=== PATIENT | male | born 1975 | race Caucasian/White ===

== ENCOUNTER 2017-01-27 15:17 | Observation (INO) | payer OTHER ==
[~2017-01-27] VITALS: Ht 193 cm; Wt 122.3 kg
--- NOTE | ~2017-01-27 | ESTC ---
Cardiac Perfusion Imaging Demographics Patient Name JOVITA Pastor Gender Male Patient Number [id number] Race Visit Number [id number] Ethnicity Corporate ID Room Number G6303 Accession Number [id number] Height 74 inches Date of 1975 Weight 270 pounds Interpreting Kermitld Oneil Date of study 01/28/2017 Physician MD Supervising /MIRACLEP Dawood Navarro APRN NM Technologist Herrera Sandra Ordering Physician Stress light rail signal technician Stress ECG Reading Dawood Navarro APRN Nurse Johnson Cha Physician RN Medications Reviewed with Patient prior to Procedure. Procedure Procedure Type: Nuclear Stress Test:Pharmacological, Lexiscan, Cardiolite Stress Test Procedure Start time: 01/28/2017 00:00 Indications: Abnormal rest ECG and Fatigue. Risk Factors The patient risk factors include:Current/Recent(w/in 1 year) tobacco use and family history of premature CAD appeared at age 47. Conclusions Summary Perfusion Images: The overall quality of the study is poor, due to gastrointestinal tracer uptake. Left ventricular cavity is noted to be enlarged on the stress and enlarged on the rest images. There is no evidence of abnormal lung activity. The right ventricle is not visualized an cannot be assessed. Impression ECG portion of lexiscan stress test is clinically negative for ischemia by diagnostic criteria. Myocardial perfusion imaging reveals mild perfusion defect in the mid anterior wall suggestive of ischemia. The inferior wall matched defect is consistent with soft tissue attenuation. Apical thinning noted. Overall left ventricular systolic function was slightly reduced at 46% and TID ratio is 1.05. There are no previous studies for comparison . This is an abnormal lexiscan stress test. Stress Protocols Resting ECG Normal Sinus Rhythm Pre-stress physical exam: Patient assessed by Ilan WALLER prior to testing. Peak HR:95 bpm HR response: Appropriate Peak BP:139/72 mmHg BP response: Appropriate Predicted HR: 179 bpm HR/BP product:80142 % of predicted HR: 53 Reason for termination:Infusion complete ECG Findings No ECG changes suggestive of ischemia. Arrhythmias No rhythm abnormality. Symptoms Shortness of breath. Nausea. Headache. Complications Procedure complication: None. Stress Interpretation Appropriate hemodynamic response to Lexiscan. No significant ST-T wave changes with Lexiscan. ECG portion is negative for ischemia by diagnostic criteria. Will correlate with nuclear images. Imaging Results Summed scores - Summed stress score: 0 - Summed rest score: 4 - Summed difference score: -4 Stress ejection Ejection fraction:46 % EDV :204 ml ESV :110 ml Stroke volume :94 ml LV mass :204 gr Imaging Protocols Rest Stress Isotope:Tc99m Sestamibi IV Isotope: Tc99m Sestamibi IV Isotope dose:15.3 mCi Isotope dose:44.4 mCi Date:01/28/2017 07:30 Date:01/28/2017 09:27 Technique: SPECT Technique: Gated Supine SPECT Supine IV remains in place after procedure. Scan Time:45-60 minutes post Scan Time:45-60 minutes post injection injection Procedure Medications - Regadenoson (Lexiscan) 0.4 mg IV over 10-15 sec. I.V. 0.4 . Medical History Admission Data Admission date: 01/27/2017 Admission Time: 17:25 Hospital Status: Inpatient. Signatures dtt: JOHN CORONEL dtd: 01/28/17 0000 Physician Self Edit
--- NOTE | ~2017-01-27 | PUL ---
PATIENT'S NAME: DERICK HUSSEIN [facility] AGE: 41 Y [address] ROOM: [address] [address] LOCATION: GPCU ADMIT DATE: 01/27/2017 Pulmonary DISCHARGE DATE: 01/29/2017 FAMILY PHYSICIAN: John Kinney PA-C ATTENDING PHYSICIAN: Houston Poon NAME OF PROCEDURE: Overnight Pulse Oximetry DATE OF PROCEDURE: January 28 to January 29, 2017 REASON FOR EXAM: Nocturnal hypoxemia RESULTS: The test was performed on room air. The recording time was 8 hours, 57 minutes, with a total valid sampling time of 8 hours, 56 minutes and 36 seconds. The highest pulse was 94, lowest pulse was 45, with a mean pulse of 56. The highest SpO2 was 100%, lowest SpO2 was 77%, with a mean SpO2 of 94.4%. The patient spent 44 seconds with SpO2 less than 89%, representing 0.1% of the total sleep time. The desaturation event index was normal at 1.5. PHYSICIAN INTERPRETATION: The patient does not have evidence of significant nocturnal hypoxia and would not qualify for supplemental oxygen as per Medicare criteria. MD MISTY DUFFY/chris /[id number] dtt: 02/02/17 1311 , STIVEN ALICIA dtd: 02/01/17 1358
--- NOTE | ~2017-01-27 | DS ---
PATIENT'S NAME: DERICK ARAUJO [facility] AGE: 41 Y [address] ROOM: [place] [address] LOCATION: GPCU ADMIT DATE: 01/27/2017 Discharge Summary DISCHARGE DATE: 01/29/2017 FAMILY PHYSICIAN: John Kinney PA-C ATTENDING PHYSICIAN: Houston Poon PRINCIPAL DISCHARGE DIAGNOSIS: Atypical chest pain. SECONDARY DIAGNOSES: 1. Severe periodontal disease. 2. Dental caries. 3. Hypertension. 4. Tobaccoism. 5. Headache and multiple constitutional symptoms of unclear etiology. CONSULTATIONS: Dr. Clarice Aleman on 01/27/2017. PROCEDURES: 1. Lexiscan on 01/28. 2. Echocardiogram on 01/28. BRIEF SUMMARY OF FINDINGS: On the echocardiogram, there was normal left ventricular size and systolic function with an estimated EF of 60% to 65%, mild concentric left ventricular hypertrophy, and mild biatrial enlargement. The Lexiscan was thought to be of poor quality related to GI tracer uptake, and the EKG portion was negative for ischemia by diagnostic criteria. Overall, Dr. Aleman felt this was an inconclusive test. BRIEF SUMMARY: Mr. Araujo is a 41-year-old male with known history of hypertension and tobacco use who was sent from [place] because of generally feeling unwell with left-sided chest pain and report of abnormal EKG. EKG obtained here showed sinus rhythm, PA interval of 160, rate of 65, without significant abnormality. He had been feeling unwell for about 3 weeks with malaise, fatigue, and some shortness of breath. Initially, he denied headache, but today he has had left- sided frontal headache which he thinks is related to his dental pain. He says he has been having intermittent chest pain sometimes related with numbness in his hand. Intermittent abdominal pain. When I interviewed him yesterday, he and his agree he does have some difficulty with sleep, possible snoring, may be some problems indicative of sleep apnea. Plan for today was to have a CT angiogram given the inconclusive Lexiscan; however, that was not able to be accomplished. PATIENT'S NAME: LINCOLN ARAUJOIS Darby [facility] AGE: 41 Y [address] ROOM: [place] [address] [facility] ADMIT DATE: 01/27/2017 Discharge Summary DISCHARGE DATE: 01/29/2017 FAMILY PHYSICIAN: John Kinney PA-C ATTENDING PHYSICIAN: Houston Poon I recommended a Panorex of his mouth to look at his dental disease; however, he was not sure of insurance coverage for this, and he declines this test at this time. The patient has set up dental followup for February 02 and is requesting discharge at this time. On admission, he also complained of some urinary hesitancy, and I suggested that he see a urologist as an outpatient. He does smoke and was counseled on admission regarding smoking cessation. I will give him a script for one week of a NicoDerm patch 21 mg, and this can be downgraded to 14 mg after that. It should be available over the counter for the patient. INSTRUCTIONS AT DISCHARGE: Diet: Low fat, with increase to more veggies and fruits. Activity: Walk 30 minutes a day. Followup appointment with Dr. Aleman in one month. His dental appointment is for February 02, and he should establish care with a primary care physician. MEDICATIONS AT THE TIME OF DISCHARGE: 1. Peridex mouthwash 30 mL swish and spit twice a day. 2. Nicotine patch 21 mg transdermal, change daily. 3. Tylenol p.r.n. CONDITION AT DISCHARGE: Good. Greater than 30 minutes were spent in the care of the patient regarding the discharge planning, etc. SANTO DARLING MD LM/mikhail /[id number] d: 01/30/17 1633 t: 02/05/17 1820, DISCHARGE SUMMARY
--- NOTE | ~2017-01-27 | CON ---
PATIENT'S NAME: DERICK ARAUJO [facility] AGE: 41 Y [address] ROOM: [place] [address] LOCATION: GPCU ADMIT DATE: 01/27/2017 Consultation DISCHARGE DATE: FAMILY PHYSICIAN: PHYSICIAN, UNKNOWN ATTENDING PHYSICIAN: Houston Poon DATE OF CONSULTATION: 01/27/2017 REFERRING PHYSICIAN: JOHN CORONEL MD REQUESTING PROVIDER: Houston Poon M.D. REASON FOR CONSULTATION: Chest pain. HISTORY OF PRESENT ILLNESS: Mr. Araujo is a very pleasant 41-year-old male without any previous cardiac history. He has complaints of feeling weak and dizzy for the past 3 weeks. He also reports a lot of fatigue and drenching sweats for the past 3 weeks as well. Also complains of headache on the left side of his forehead. He does report that he has chills and fevers both going on. He just has not been feeling very well for the past 3 weeks. Upon further questioning, he does report that he has chest pain off and on, mild, it radiates to the left arm, and once he starts pumping his fist, the chest pain decreases. He reports that lasts a few minutes and resolves on its own. During interview, the patient does not have any chest pain. He says that he has occasional shortness of breath, but no PND or orthopnea. Occasional lower extremity edema. No palpitations, lightheadedness, or loss of consciousness. No falls. No changes in his speech, appetite, or vision. No skin rashes. REVIEW OF SYSTEMS: A 10-point review of systems discussed with the patient. Pertinent positives and negatives mentioned in the history of presenting illness. PAST MEDICAL HISTORY: No active problems. PAST SURGICAL HISTORY: Appendectomy in 2011 and bilateral knee surgeries. SOCIAL HISTORY: Current smoker, 1 pack per day. Social drinker. He lives in [place] with his family. FAMILY HISTORY: PATIENT'S NAME: DERICK ARAUJO [facility] AGE: 41 Y [address] ROOM: [place] [address] LOCATION: GPCU ADMIT DATE: 01/27/2017 Consultation DISCHARGE DATE: FAMILY PHYSICIAN: PHYSICIAN, UNKNOWN ATTENDING PHYSICIAN: Houston Poon Positive for premature coronary artery disease. His father had a triple bypass surgery when he was 48 years old. MEDICATIONS: Excedrin p.r.n. ALLERGIES: NO KNOWN DRUG ALLERGIES. PHYSICAL EXAMINATION: GENERAL: The patient is awake, alert, cooperative, in no apparent distress. SKIN: Rash. HEAD: Normocephalic and atraumatic. EYES: Conjunctivae white. Extraocular movements are intact. Mucous membranes moist. NECK: No JVD. HEART: S1 and S2. Regular rate and rhythm. No murmurs, gallops, or rubs. LUNGS: Clear to auscultation bilaterally. ABDOMEN: Soft. Bowel sounds positive. NEUROLOGIC: Grossly intact. No significant lower extremity edema. IMAGING: EKG showed normal sinus rhythm with some early repolarization changes, no evidence of any ST elevation or depression, suggestive of ischemia or injury pattern. LABORATORY DATA: WBC 10.9, H and H 15.8 and 47, and platelets are 300. IMPRESSION: 1. Atypical chest pain. 2. Shortness of breath. 3. Fatigue. 4. Nausea and vomiting. 5. Cold sweats and intermittent fevers. 6. Tobacco abuse. PLAN: At this time, the patient has numerous constitutional symptoms. I am not sure if he has some sort of an infection or inflammatory process going on. We will defer to the hospitalist for workup as far as that is concerned. As far as the chest pain, it is quite atypical and I am fairly uncertain this is not secondary to ACS, however, we will get serial isoenzymes. If he rules out [place], it is reasonable to risk stratify with a Lexiscan stress test since he is unable to walk up on an incline on the treadmill due to his bilateral knee PATIENT'S NAME: DERICK ARAUJO [facility] AGE: 41 Y [address] ROOM: [place] [address] [facility] ADMIT DATE: 01/27/2017 Consultation DISCHARGE DATE: FAMILY PHYSICIAN: PHYSICIAN, UNKNOWN ATTENDING PHYSICIAN: Houston Poon surgeries. Since he has risk factors of premature coronary artery disease, chest pain as well as tobacco use history, it is reasonable to evaluate if there is any evidence of ischemia. I will also get an echocardiogram for evaluating his heart function as well as valve and presence of diastolic dysfunction. The patient was counseled again the importance of cessation of tobacco products. Thank you very much for allowing us to participate in the care of Mr. Araujo. JOHN CORONEL MD AT/annal /[id number] d: 01/28/17 0152 t: 01/28/17 1750, CONSULTATION REPORT
--- NOTE | ~2017-01-27 | ECHO ---
Transthoracic Echocardiography Report (TTE) Demographics Patient Name DERICK HUSSEIN Date of Study 01/28/2017 Patient Number [id number] Visit Number [id number] Date of 1975 Room Number G6303 Gender Male Number Age 41 year(s) Referring Nirmal LEONG Brush Clearing Laborer Natalia Paulino RDCS, Physician Ash Oneil RVT MD Physician Interpreting Ash Oneil Adjuster Piano Action Physician MD Supervising Ordering Ash Oneil MD/MLP Physician MD Nurse Stress Child Advocate Conclusions Contractility Score Summary Normal Left Ventricular contractility was noted. Summary Normal LV/RV size and systolic function. The estimated left ventricular ejection fraction is 60-65%. Mild concentric left ventricular hypertrophy. Mild biatrial enlargement. No significant valvular abnormalities. Procedure Type of Study TTE procedure:2D Echocardiogram. Procedure Date Date: 01/28/2017 Start: 03:05 PM Study Location: Inpatient Portable Technical Quality: Adequate visualization Indications:Chest pain and Shortness of breath. Appropriate Use Criteria: 9 Patient Status: Routine HR: 57 bpm BP: 114/62 mmHg M-Mode/2D Measurements LV Diastolic Dimension: 5.03 cm LV Systolic Dimension: 3.06 cm LV Septum Diastolic: 1.14 cm LV PW Diastolic: 1.09 cm Cardiac Output: 6.01 l/min LA Dimension: 3.5 cm LVOT: 2.5 cm LVOT VTI: 21.5 cm RV Base: 3.26 cm LV Stroke volume: 105.48 ml RV Length: 8.2 cm TAPSE: 2.72 cm TDI-S': 11.7 cm/s Doppler Measurements AV Peak Velocity: 1.25 m/s MV Peak E-Wave: 0.64 m/s AV Peak Gradient: 6.25 mmHg MV Peak A-Wave: 0.53 m/s AV Mean Gradient: 3 mmHg MV E/A Ratio: 1.21 LVOT Peak Velocity: 1.17 m/s MV Deceleration Time: 285 msec TR Velocity:2.02 m/s PV Peak Velocity: 1.18 m/s TR Gradient:16.32 mmHg PV Peak Gradient: 5.57 mmHg Estimated RAP:15 mmHg Estimated PASP: 31.32 mmHg Estimated RVSP: 31 mmHg A' Septal Velocity: 0.13 m/s E' Septal Velocity: 0.09 m/s A' Lateral Velocity: 0.08 m/s E' Lateral Velocity: 0.16 m/s Findings Left Ventricle Mild concentric left ventricular hypertrophy. Diastolic assessment reveals normal relaxation. Right Ventricle Normal right ventricle structure and function. Left Atrium The left atrium is mildly dilated by LA volume index measurement. Right Atrium The right atrium is mildly dilated. Mitral Valve Normal mitral valve structure and function. Aortic Valve Normal aortic valve structure and function. Tricuspid Valve Mild tricuspid regurgitation by color Doppler. Pulmonic Valve Normal pulmonic valve structure and function. Pericardial Effusion No evidence of pericardial effusion. Miscellaneous Visualized portions of the aortic root and ascending aorta appear normal in size. Pleural Effusion No evidence of pleural effusion. Contractility Score LV regional wall motion:(0-Non visualized 1-Normal 2-Hypokinesis 3-Akinesis 4-Dyskinesis 5-Aneurysm) Signature dtt: JOHN CORONEL dtd: 01/28/17 1505 Physician Self Edit
--- NOTE | ~2017-01-27 | HP ---
PATIENT'S NAME: DERICK HUSSEIN [facility] AGE: 41 Y [address] ROOM: [place] [address] LOCATION: GPCU ADMIT DATE: 01/27/2017 History & Physical DISCHARGE DATE: FAMILY PHYSICIAN: PHYSICIAN, UNKNOWN ATTENDING PHYSICIAN: Houston Poon DATE OF SERVICE: CHIEF COMPLAINT: Chest pain. HISTORY OF PRESENTING ILLNESS: This 41-year-old white male with a previous history of hypertension and tobacco use was sent to the emergency room today by his primary care provider in [place] with complaints of feeling unwell and left-sided chest pain. There was a report of abnormal EKG initially, but I do not have that for review. His EKG in the emergency room here was normal. He states he has not felt well for 3 weeks. He describes feelings of malaise and fatigue and some shortness of breath. He cannot really relate it to any specific incident, but indicates that his family members were sick with a viral illness around that time. He denies fevers, chills, or sweats. He denies headaches, but does feel a little dizzy, particularly when he is up. His chest pain is left-sided and sharp in nature. It comes and goes. He has also got some fullness in the left axilla, but he thinks that is resolving. He does have some intermittent abdominal pain and feels as though he cannot empty his bladder at times. Bowels have been regular. He stools normally, denies noticing any blood in his stools or black tarry stools, no other urinary complaints, and no numbness, tingling, or weakness in his extremities. ALLERGIES: BEE STINGS. ILLNESSES: 1. Hypertension. 2. Tobaccoism. CURRENT MEDICATIONS: Essential oils topically p.r.n. FAMILY HISTORY: Significant for heart disease in his father. He from lung cancer. Mother suffered from a brain tumor. There is also diabetes on his mother's side. PATIENT'S NAME: DERICK HUSSEIN [facility] AGE: 41 Y [address] ROOM: [place] [address] LOCATION: GPCU ADMIT DATE: 01/27/2017 History & Physical DISCHARGE DATE: FAMILY PHYSICIAN: PHYSICIAN, UNKNOWN ATTENDING PHYSICIAN: Houston Poon SOCIAL HISTORY: He is and lives in [place]. He works as a superintendent construction. He has got a [id number] history of smoking tobacco. He drinks alcohol occasionally. He denies any other illicit drug use. REVIEW OF SYSTEMS: As per HPI. All other organ systems reviewed and are negative. OBJECTIVE: VITAL SIGNS: Temperature 96.6, pulse 76, respirations 18, and blood pressure 126/79. GENERAL: He is anxious, but cooperative, lying in bed, in no acute distress. SKIN: Supple, pink, warm, and dry. No obvious rashes. HEENT: Otherwise, normocephalic. Sclerae nonicteric. Pupils equal, round, and reactive to light and accommodation. Extraocular movements appear intact. Nasal turbinates normal in appearance. Oropharynx clear. Mucous membranes pink and moist. NECK: Supple. No masses or adenopathy. No thyromegaly. No JVD. CHEST: Chest wall is symmetrical. HEART: Regular without murmurs. LUNGS: Clear bilaterally. No wheezes or crackles heard. ABDOMEN: Soft, nontender. Bowel sounds present. No masses. No hepatosplenomegaly. AND RECTAL: Not done. EXTREMITIES: Display no cyanosis or edema. NEUROLOGICAL: No focal deficits. LABORATORY AND X-RAY DATA: A 12-lead EKG shows normal sinus rhythm without any acute abnormalities. Chest x-ray is unremarkable. CBC showed a white blood cell count 10.6, hemoglobin is 15.6, hematocrit 47.0, and platelets 231. Chemistries reveal BUN and creatinine 11 and 0.8 respectively; sodium and potassium 138 and 4.3; chloride and CO2 are 104 and 29; calcium is 8.8; AST and ALT 13 and 27; magnesium was 2.3. Sed rate was normal at 5. PT and PTT 10.3 and 27 respectively. Cardiac enzymes were negative with CPK of 75. Troponin I less than 0.04. Pro-BNP was less than 30. C-reactive protein was 0.29. TSH was 2.97. Procal was less than 0.05. Amylase and lipase were normal at 45 and 101. Lactate was 1.4. ASSESSMENT AND PLAN: 1. Atypical chest pain. We will admit for observation. His initial set of cardiac enzymes and EKG is normal, but he did get some relief with intravenous nitroglycerin. I placed him on the acute coronary syndrome pathway. We will hold off on heparinization as his SUSAN score is low. We will follow serial enzymes and continue with supportive cares. Try to PATIENT'S NAME: DERICK HUSSEIN [facility] AGE: 41 Y [address] ROOM: [address] [address] LOCATION: [facility] ADMIT DATE: 01/27/2017 History & Physical DISCHARGE DATE: FAMILY PHYSICIAN: PHYSICIAN, UNKNOWN ATTENDING PHYSICIAN: Houston Poon wean the nitro as he is able. I did discuss the case with Dr. Muniz, [facility] Cardiology, who will also evaluate. If he rules out, we will plan for cardiac stress testing tomorrow. 2. Excessive fatigue. Differential diagnosis is relatively broad. His preliminary workup which is fairly extensive is benign. There is no evidence of infection or inflammatory disorder. We will follow his cardiac workup. Consider getting echocardiography and await cardiac stress testing. Encourage attention to healthy lifestyle habits including good sleep, hygiene, balanced diet, regular exercise etc. He might benefit from a sleep study at some point. 3. Essential hypertension. Currently, stable. We will follow the trend and make adjustments if necessary. We will go ahead and add beta-abelardo therapy and JAKE inhibitor therapy per the acute coronary syndrome pathway. 4. Urinary hesitancy, suspect this may be related to underlying benign prostatic hypertrophy. He is only minimally symptomatic. We will get a bladder scan and suggest outpatient Urology evaluation. 5. Tobaccoism, urged smoking cessation. Gave smoking cessation counseling. Spent approximately 10 minutes discussing this. He is in a contemplative phase. We will utilize nicotine transdermal patch while he is inpatient. Encourage continued abstinence at discharge. 6. Deep venous thrombosis prophylaxis. We will use low-dose Lovenox while he is inpatient. MD ESME MORA/mikhail /[id number] D: [id number] T: [id number] HISTORY & PHYSICAL
--- NOTE | ~2017-01-27 | ER ---
PATIENT'S NAME: LINCOLN HUSSEINIS Darby [facility] AGE: 41 Y [address] ROOM: [address] [address] LOCATION: [facility] ADMIT DATE: 01/27/2017 ER/Outpatient Report DISCHARGE DATE: FAMILY PHYSICIAN: PHYSICIAN, UNKNOWN ATTENDING PHYSICIAN: Houston Poon Admission date and time are documented on the medical record. I saw the patient at 1530 hours. CHIEF COMPLAINT: Left anterior chest pain, radiating to the left shoulder down the left arm with accompanied shortness of breath, diaphoresis, nausea, vomiting, lightheadedness, dizziness, fatigue, and weakness. HISTORY OF PRESENT ILLNESS: The patient is a 41-year-old male who has not been feeling well for about 3 weeks. He had an upper respiratory infection 3 to 4 weeks ago and he has not really recovered from that. He is fatigued easily with generalized weakness. 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 He developed some left anterior chest pain this morning radiating into the left shoulder down the left arm accompanied with shortness of breath, diaphoresis, nausea, vomiting x1, lightheadedness, dizziness, and a generalized weakness, fatigue. No known history of coronary artery disease, lung disease, diabetes, liver and kidney disease. He does smoke a pack of cigarettes per day. He does have a strong family history of heart disease. Does have occasional occipital left frontal headache behind his left eye. He has had it off and on over the past few days. No eyes, ears, nose, throat, neck, or spine pain. No fall or trauma. Over the past week or so, he has not had any colds, coughs, flus, fever, chills, or sweats. No syncope or near syncope. No abdominal pain. No diarrhea. No urinary symptoms. No joint or muscle swelling, redness, or pain. No skin eruptions or rash. No history of neuro changes, psych issues, or endocrine problems. HOME MEDICATIONS: None. ALLERGIES: NONE. SOCIAL HISTORY: The patient smokes a pack of cigarettes a day. Does smoke marijuana on occasion. Drinks alcohol 2 times a week. No other illnesses. OPERATIONS: [facility] 41 Y [address] ROOM: [id number] [place], [place] [address] LOCATION: [facility] ADMIT DATE: 01/27/2017 ER/Outpatient Report DISCHARGE DATE: FAMILY PHYSICIAN: PHYSICIAN, UNKNOWN ATTENDING PHYSICIAN: Houston Poon Appendectomy, neck surgery, and bilateral knee arthroscopy. REVIEW OF SYSTEMS: All systems reviewed by me are negative with the exception of those discussed in the history of present illness. PHYSICAL EXAMINATION: VITAL SIGNS: Pulse 70, respirations 18, blood pressure 150/82, and O2 sat on room air is 97%. Newton Coma Scale was 15. HEAD: Normocephalic. No abrasion, contusion, laceration, or swelling of scalp or face. EYES: Extraocular muscles intact. PERRL. Sclerae and conjunctivae clear, nonicteric. EARS, NOSE, THROAT: Clear. Mucous membranes moist. Teeth, jaw intact. NECK: Full range of motion. No thyromegaly or cervical adenopathy. No tenderness. SPINE: Nontender. No deformity. LUNGS: Clear. Good airflow. No rales, rhonchi, or wheezes. HEART: Regular. Pulses are palpable. No chest wall or ribcage pain to palpation. ABDOMEN: Soft, nondistended, nontender. Good bowel tones. No organomegaly or abnormal mass palpable. EXTREMITIES: No peripheral edema, cyanosis, or deformity. NEUROVASCULAR: Intact. SKIN: Clear. No skin eruptions or rash. LABORATORY DATA: EKG showed sinus rhythm. No acute ST-elevation, ischemic change, or arrhythmia. Chest x-ray showed no acute infiltrate or changes. We will review x-ray with the radiologist. Laboratory: Procalcitonin was normal at less than 0.05. Lactate was normal at 1.4. CBC showed a white count of 10,600, 60 segs, 27 lymphs, 8 monos, 3 eos, 1 baso, hemoglobin is 15.6, hematocrit 45.0, and platelet count was 231,000. PTT was 27, pro-time is 10.3 with an INR 0.98. CMS was normal except for a low anion gap of 9.3, magnesium was normal at 2.3, amylase and lipase were normal. CPK was normal at 75. [id number] cardiac enzymes were normal. CRP was less than 0.29. Thyroid tests were normal. Pro-BNP was less than 30, D-dimer was normal at less than 0.19. EMERGENCY DEPARTMENT COURSE: We did give the patient 4 baby aspirin orally. Did start him on a nitro drip and got it up to 10 mcg with resolution of his chest pain. IMPRESSION: 1. Left anterior chest pain, radiating into the left shoulder, down the left PATIENT'S NAME: DERICK HUSSEIN [facility] AGE: 41 Y [address] ROOM: [address] [address] LOCATION: [facility] ADMIT DATE: 01/27/2017 ER/Outpatient Report DISCHARGE DATE: FAMILY PHYSICIAN: PHYSICIAN, UNKNOWN ATTENDING PHYSICIAN: Houston Poon arm with accompanied shortness of breath, nausea, vomiting, lightheadedness, dizziness, diaphoresis, and generalized weakness and fatigue, suspect unstable angina, with resolution of his pain, using nitro. The patient has risk factors that he is a heavy smoker, slightly obese, with a strong family history of heart disease. 2. Tobacco abuse. PLAN: Discussed the patient with Dr. Poon, hospitalist, who will admit the patient to the hospital. Observation, PCU telemetry for further cardiac evaluation, stress test, possible echo, possible cardiac catheterization. Discussion ensued with the patient concerning my findings and recommendations, he understands. Accumulated critical care time was 30 minutes. MD JENNIFER VEGA/modl /[id number] d: 01/28/17 0005 t: 01/28/17 0617, OUTPATIENT REPORT
[2017-01-27 15:55] LABS: BASOPHIL # 0.1 K/uL (0.0-0.2); BASOPHIL % 0.7 %; EOSINOPHIL # 0.3 K/uL (0.0-0.5); EOSINOPHIL % 3.1 %; HEMOGLOBIN 15.6 g/dL (12.0-17.0); IMMATURE GRANULOCYTE % 0.4 %; LYMPHOCYTE # 2.9 K/uL (0.8-4.0); LYMPHOCYTE % 27.4 %; MCH 29.9 pg (27.0-34.0); MCHC 33.2 gm/dL (32.0-36.5); MCV 90.2 fl (83.0-98.0); MONOCYTE # 0.9 K/uL (0.0-1.0); MONOCYTE % 8.1 %; NEUTROPHIL # (ANC) 6.4 K/uL (1.4-9.0); NEUTROPHIL % 60.3 %; NRBC % 0 /100WBC (0-0.00); PLATELET COUNT 231 K/uL (150-450); RBC 5.21 M/uL (4.00-6.00); RDW-CV 14.5 % (11.9-14.6); WBC 10.6 K/uL (4.0-11.0)
[2017-01-27 16:03] LABS: INR - (THERAPEUTIC) 0.98 (0.92-1.07); PROTIME 10.3 SECONDS (9.8-11.4); PTT 27 SECONDS (25-32)
[2017-01-27 16:16] LABS: ALBUMIN 3.9 gm/dL (3.5-5.0); ALK PHOS 67 IU/L (33-138); ALT 27 IU/L (12-78); ANION GAP 9.3 (10.0-19.0); AST 13 IU/L (10-40); BLOOD UREA NITROGEN 11 mg/dL (6-24); CALCIUM 8.8 mg/dL (8.5-10.5); CHLORIDE 104 mMol/L (96-110); CO2 29 mMol/L (22-32); CPK 75 IU/L (35-332); CREATININE 0.8 mg/dL (0.6-1.3); ESTIMATED GFR (MDRD EQUATION) > 60; MAGNESIUM 2.3 mg/dL (1.8-2.6); POTASSIUM 4.3 mMol/L (3.7-5.1); SODIUM 138 mMol/L (135-145); TOTAL BILIRUBIN 0.2 mg/dL (0.0-1.5); TOTAL PROTEIN 7.5 g/dL (6.0-8.4)
--- NOTE | 2017-01-27 17:46 | NUR ---
Admission Note: Patient reports the last 3 weeks he has felt excessively tired and has broken out in cold sweats every night. He has also had an intermittent shart left-sided chest pain radiating down left arm for 3 weeks. Went to the clinic today to be checked out, and it was noted he had ST elevation on EKG. Patient refused ambulance ride and drove by private car to [facility] ED. Cardiac enzymes negative on arrival and EKG showed sinus rhythm. Started on Nitroglycerin gtt at 5 mcg/min and patient still reported chest pain. Chest pain free with 10 mcg/min. Patient admitted to PCU at 1720. Vital signs: HR 64, RR 16, BP 114/81, O2 saturation 95% on RA, temperature 98.0F, and denies chest pain at this time. States that he is just tired, but otherwise assessment negative. Denies shortness of breath. Continued on Nitroglycerin at 10 mcg/min. Notified Dr. Poon of patient's arrival. Will continue as per plan of care. Aditya RIVERA 01/27/17
[2017-01-27 18:21] LABS: BILIRUBIN URINE NEGATIVE (NEGATIVE); BLOOD URINE 10 /UL (NEGATIVE); COLOR URINE YELLOW (YELLOW); GLUCOSE URINE NEGATIVE (NEGATIVE); KETONE URINE NEGATIVE (NEGATIVE); LEUKOCYTES URINE 25 /UL (NEGATIVE); NITRITE URINE NEGATIVE (NEGATIVE); PROTEIN URINE NEGATIVE (NEGATIVE); TURBIDITY URINE CLEAR (CLEAR); UROBILINOGEN URINE NORMAL (NORMAL)
[2017-01-27 18:50] LABS: BACTERIA URINE NEGATIVE (NEGATIVE); RBC URINE 0-2 #/HPF (NEGATIVE); WBC URINE RARE #/HPF (NEGATIVE)
[2017-01-27 18:52] LABS: CPK 74 IU/L (35-332)
[2017-01-27 23:37] LABS: CPK 62 IU/L (35-332)
--- NOTE | 2017-01-28 05:01 | NUR ---
Significant Event: Patient is alert/oriented x3. Vital signs are stable. On room air. Nitroglycerin drip turned off around midnight. Patient has denied chest pain throughout the night. Cardiac enzymes have been negative. NPO since midnight. Follow up: Lexiscan stress test this AM and echo.
[2017-01-28 05:56] LABS: CPK 65 IU/L (35-332)
--- NOTE | 2017-01-28 11:29 | NUR ---
Introduced self and role of care management to patient and . They live in [place]. He states that he is able to do all his own ADL's. His states that she will be available to assist as needed. They plan on him returning home on discharge. He denies any needs at this time. Will continue to follow.
[2017-01-28 11:35] LABS: CPK 68 IU/L (35-332)
--- NOTE | 2017-01-28 19:14 | NUR ---
Significant Event: VSS ON RA. STRESS TEST ABNORMAL BEING NON-DIAGNOSTIC. CTA OF CORONARIES ORDERED FOR TOMORROW IN AM WELL PANOREX XRAY IN THE MORNING. PATIENT REQUESTING BOTH SCANS TO BE ON H OLD UNTIL FURTHER KNOWLEDGE OF INSURANCE COVERING BOTH SCANS. NO C/O CHEST DISCOMFORT. AMBULATE IN HALLS WITH CARDIAC REHAB SBA WITH ONLY C/O WEAKNESS. TYLENOL GIVEN AT 0725 FOR HEADACHE WITH RELIEF NOTED. PIV SL'D TO R) WRIST/FA. BM TODAY AND VOIDS PER URINAL. FISH OIL INITIATED AND LIPITOR DC'D. Follow up: CTA OF CORONARIES AND PANOREX XRAY TOMORROW. MONITOR PER PLAN OF CARE.
[2017-01-29 04:30] LABS: BASOPHIL # 0.1 K/uL (0.0-0.2); BASOPHIL % 0.6 %; EOSINOPHIL # 0.4 K/uL (0.0-0.5); EOSINOPHIL % 3.8 %; HEMATOCRIT 47.6 % (37.0-53.0); HEMOGLOBIN 16.1 g/dL (12.0-17.0); IMMATURE GRANULOCYTE % 0.4 %; LYMPHOCYTE # 3.1 K/uL (0.8-4.0); LYMPHOCYTE % 30.6 %; MCH 30.7 pg (27.0-34.0); MCHC 33.8 gm/dL (32.0-36.5); MCV 90.7 fl (83.0-98.0); MONOCYTE # 0.8 K/uL (0.0-1.0); MONOCYTE % 8.2 %; MPV 10.1 fl (9.4-12.4); NEUTROPHIL # (ANC) 5.8 K/uL (1.4-9.0); NEUTROPHIL % 56.4 %; NRBC % 0 /100WBC (0-0.00); PLATELET COUNT 212 K/uL (150-450); RBC 5.25 M/uL (4.00-6.00); RDW-CV 14.1 % (11.9-14.6); WBC 10.3 K/uL (4.0-11.0)
[2017-01-29 04:47] LABS: ALBUMIN 3.7 gm/dL (3.5-5.0); ANION GAP 11.5 (10.0-19.0); BLOOD UREA NITROGEN 14 mg/dL (6-24); CALCIUM 8.6 mg/dL (8.5-10.5); CHLORIDE 105 mMol/L (96-110); CO2 27 mMol/L (22-32); CREATININE 0.9 mg/dL (0.6-1.3); ESTIMATED GFR (MDRD EQUATION) > 60; PHOSPHORUS 3.8 mg/dL (2.5-4.9); POTASSIUM 4.5 mMol/L (3.7-5.1); SODIUM 139 mMol/L (135-145)
--- NOTE | 2017-01-29 06:53 | NUR ---
Significant Event: Patient is alert/oriented x3. Vital signs stable. On room air. Tylenol given x1 for headache, with relief, otherwise no other discomfort. Patient would prefer to speak with care management to determine if his insurance will cover the XRAY of jaw that Dr. Carter ordered yesterday. Follow up: CT angiogram today. Dr. Padilla to read results.
--- NOTE | 2017-01-29 12:01 | NUR ---
Received a call from Prosper RIVERA stating patient and his would like to speak with me. I met with them in patients room. They had questions about who to talk to to set up a financial payment plan. I explain that after discharge the hospital will submit everything to [employer]. After [employer] pays their portion then they will receive a bill from the hospital. On the bill will be a phone number they can call to set up a payment plan. They are also concerned about the panorex xray Dr Schrader has orders. Patient's states she call [employer] and was told that the doctor would need to call and precert the xray and would need the medcial code. Patient's states "we already know he has bad teeth, is this xray going to tellus something we don't already know." She also stated that his dental insurance starts February 25 and he has a scheduled dental appointment shortly after. I explained that I would leave a note the that information on the chart for Dr Carter but they also need to voice their concerns to her. They verbalized understanding. Updated Prosper RIVERA. WIll coantinue to follow.
--- NOTE | 2017-01-29 15:27 | NUR ---
Significant Event: VSS AND RA. DENIES BRIANA. TYLMIAH X1 FOR MORA. TO HAVE CT ANGIOGRAM THIS AFTERNOON OF CORONARIES. UP AD AMY IN THE ROOM AND WATTS. Follow up: CONTINUE PLAN OF CARE/ ? D/C LATER TODAY.
[2017-01-29] MEDS ORDERED: PERIDEX15 ML PO (18:37)
[2017-01-29] MEDS ORDERED: NICODERM / HABIT7 MG TOP (18:39)
[2017-01-29] MEDS ORDERED: TYLENOL325 MG PO (18:41)
--- NOTE | 2017-01-29 18:50 | NUR ---
D/C ORDERS RECIEVED. REVIEWED WITH THE PATIENT AND HIS ALL D/C INFORMATION INCLUDING MEDICATIONS, TO SCHEDULE HIS F/U, AND INSTRUCTIONS. TOBACCO CESSATION INFORMATION GIVEN TO THE PATIENT. PIV D/C'D AND CATHETER INTACT. AMBULATED PER HIS REQUEST TO FRONT ENTRANCE OF HOSPITAL AND SPOUSE TO DRIVE HIM HOME.
== END 2017-01-29 18:50 | disposition disaster alternative care site (69) ==
LOC: GMED 15:17 → GPCU 17:25
PROVIDERS: Emergency Medicine; Nurse Practitioner Family; ADMIT Family Medicine
DX: R07.89 Other chest pain (principal); R06.02 Shortness of breath; R53.83 Other fatigue; R06.00 Dyspnea, unspecified; K05.6 Periodontal disease, unspecified; K02.9 Dental caries, unspecified; I10 Essential (primary) hypertension; R11.2 Nausea with vomiting, unspecified; R51 Headache; R39.11 Hesitancy of micturition; Z87.891 Personal history of nicotine dependence; Z90.49 Acquired absence of other specified parts of digestive tract; Z98.890 Other specified postprocedural states; Z79.899 Other long term (current) drug therapy
CPT/HCPCS: A9500; G0378; J1650; J2785